=== PATIENT | female | born 2005 | race Two or more races ===

== ENCOUNTER 2025-07-22 14:54 | Emergency (ER) | payer SELFPAY ==
[~2025-07-22] VITALS: Ht 165.1 cm; Wt 64.5 kg
[2025-07-22 14:57] VITALS: BP 121/72; PULSE 105; RESP 16; TEMP 98; O2SAT 100
[2025-07-22] MEDS ORDERED: PRED20TA2 PO (16:10)
[2025-07-22] MEDS ORDERED: HYDRX10T PO (16:10)
[2025-07-22] MEDS ORDERED: FAMO20TA10 PO (16:10)
[2025-07-22] MEDS ORDERED: TRIO1TP EX (16:10)
--- NOTE | 2025-07-22 16:10 | ED.PDOC ---
History of Present Illness(SKN HPI Comments 19 year old female presents to the ER with a chief complaint of generalized rash and itchiness. Patient reports on initially having a rash appear behind her knees in his since spread to her elbows, back, chest, and hands. It is associated with a significant pruritus described as itchiness everywhere. The duration of the rash is unspecified in the patient is uncertain of its origin. The patient has not attempted any other treatments prior to the visit. There has been no recent changes in lotion or detergents, no recent travel and no exposure to others with similar symptoms recently. A portion of the rash on her hands has resolved but the itchiness persists. No fevers have been reported at this time. Denies any other symptoms at this moment. Chief Complaint: Rash Time Seen by MD: 16:15 History of Present Illness: Nurses Notes, Medications, Allergies Allergies: Coded Allergies: NO KNOWN ALLERGIES (Unverified , 07/22/25) Home Meds Active Scripts Prednisone (Prednisone) 20 Mg Tab, 40 MG PO DAILY for 5 Days, #10 TAB 0 Refills Prov:SONYA RIVERA NP 07/22/25 Famotidine (PEPCID TABLET) 20 Mg Tb, 1 TAB PO DAILY for 10 Days, #10 TAB 0 Refills Prov:SONYA RIVERA NP 07/22/25 Hydroxyzine Hcl (Hydroxyzine Hcl) 10 Mg Tab, 10 MG PO TIDPRN PRN for 10 Days, #30 TAB 0 Refills Prov:SONYA RIVERA NP 07/22/25 Triamcinolone Acetonide (Triamcinolone Acetonide) 0.1 % Cre, 1 APPLIC EX BID for 7 Days, #60 GRAMS 0 Refills Prov:SONYA RIVERA NP 07/22/25 Information Source: Patient Mode of Arrival: Ambulatory Severity: Moderate Timing: Minutes Duration: Since onset, Hours Prehospital treatment: None Location: Back, Chest, Hand Mechanism: Spontaneous Onset Developed: Rash Object: Unknown Condition of Object: None Retained Foreign Body: Unknown Wound Type: Unknown Immunization Status of Animal: NA Tetanus: Unknown History of: None Associated Signs and Symptoms: None Past Medical History PAST MEDICAL HISTORY: Denies Surgical History: Denies all surgeries PRINTING WORKER SUPERVISOR History: No Pertinent PRINTING WORKER SUPERVISOR History Family History Family History: Reviewed,noncontributory to illness, Unknown Social History Smoker: Non-Smoker Alcohol: Denies ETOH Use Drugs: Denies Drug Use Lives In: Home Constitutional: denies: chills, diaphoresis, fatigue, fever, malaise, sweats, weakness, others EENTM: denies: blurred vision, double vision, ear bleeding, ear discharge, ear drainage, ear pain, ear ringing, eye pain, eye redness, hearing loss, mouth pain, mouth swelling, nasal discharge, nose bleeding, nose congestion, nose pain, photophobia, tearing, throat pain, throat swelling, voice changes, others Respiratory: denies: cough, hemoptysis, orthopnea, SOB at rest, shortness of breath, SOB with excertion, stridor, wheezing, others Cardiovascular: denies: chest pain, dizzy spells, diaphoresis, Dyspnea on exertion, edema, irregular heart beat, left arm pain, lightheadedness, palpitations, PND, syncope, others Gastrointestinal: denies: abdomen distended, abdominal pain, blood streaked bowels, constipated, diarrhea, dysphagia, difficulty swallowing, hematemesis, melena, nausea, poor appetite, poor fluid intake, rectal bleeding, rectal pain, vomiting, others Genitourinary: denies: abnormal vagina bleeding, burning, dyspareunia, dysuria, flank pain, frequency, hematuria, incontinence, pain, , vagina discharge, urgency, others Neurological: denies: dizziness, fainting, headache, left sided numbness, left sided weakness, numbness, paresthesia, pre-existing deficit, right sided numbnes s, right sided weakness, seizure, speech problems, tingling, tremors, weakness, others Musculoskeletal: denies: back pain, gout, joint pain, joint swelling, muscle pain, muscle stiffness, neck pain, others Integumetry: reports: rash; denies: bruises, change in color, change in hair/nails, dryness, laceration, lesions, lumps, wounds, others Allergic/Immunocompromised: denies: Difficulty Healing, Frequent Infections, Hives, Itching, others Hematologic/Lymphatic: denies: anemia, blood clots, easy bleeding, easy bruising, swollen glands, others Endocrine: denies: excessive hunger, excessive sweating, excessive thirst, excessive urination, flushing, intolerance to cold, intolerance to heat, unexplained weight gain, unexplained weight loss, others Psychiatric: denies: anxiety, bipolar disorder, depression, hopeless, panic disorder, schizophrenia, sleepless, suicidal, others All Other Systems: Reviewed and Negative Physical Exam General Appearance: No Apparent Distress, Normal HEENT: Normal ENT Inspection, Pharynx Normal, TMs Normal Neck: Full Range of Motion, Non-Tender, Normal, Normal Inspection Respiratory: Chest Non-Tender, Lungs Clear, No Accessory Muscle Use, No Respiratory Distress, Normal Breath Sounds Cardiovascular: No Edema, No JVD, No Murmur, No Gallop, Normal Peripheral Pulses, Regular Rate/Rhythm Breast Exam: Deferred Gastrointestinal: No Organomegaly, Non Tender, No Pulsatile Mass, Normal Bowel Sounds, Soft Genitalia: Deferred Pelvic: Deferred Rectal: Deferred Extremities: No calf tenderness, Normal capillary refill, Normal inspection, Normal range of motion, Non-tender, No pedal edema Musculoskeletal : Apperance: Normal Neurologic: Alert, vision impaired teacher II-XII nml as Tested, No Motor Deficits, Normal Affect, Normal Mood, No Sensory Deficits Cerebellar Function: Normal Reflexes: Normal Skin: Dry, Normal Color, Warm Lymphatic: No Adenopathy Was a procedure done? Was a procedure done?: No Differential Diagnosis (INTG) Differential Diagnosis: Other Differential Diagnosis: Contact Dermatitis X-Ray, Labs, Meds, VS Vital Signs Date Time Temp Pulse Resp B/P (MAP) Pulse Ox O2 Delivery O2 Flow Rate FiO2 07/22/25 14:57 98.0 105 16 121/72 100 98.0 X-Ray, Labs, Meds, VS Comment 19 year old female presents to the ER with a chief complaint of generalized rash and itchiness. Patient arrives alert and oriented, ABC's intact, afebrile, vital signs stable, saturating well in room air Patient is stable for discharge at this time. External notes reviewed. Test results and diagnostic imaging interpreted. All diagnostic findings, discharge care, education and instructions provided Follow-up with PCP in 2 to 3 days Patient verbalized understanding and agreed to treatment plan Vital signs stable, afebrile, no acute distress noted Patient ambulatory with strong steady gait Advised to return precautions for any new or worsening symptoms, return to ER immediately for re-evaluation Patient is aware that the purpose of this visit was for an acute medical emergency requiring emergent stabilization. Chronic conditions, including malignancies have not been ruled out. Patient is instructed to follow up with PCP as directed and discharge instructions for continued care and workup. If unable to arrange follow-up, patient is to return to the emergency department for reassessment. Patient (parent or legal guardian if applicable) was given verbal and written discharge instructions and acknowledges understanding. Additional MDM Review of External, Non-ED records: External records reviewed. Discussion with independent historian (EMS, family) history obtained from the patient/parents (if applicable) at bedside Chronic conditions affecting care: None Social determinants of health affecting care: None Consideration of admission (observation or admission): I considered escalation of care to admission for this patient, however given the reassuring workup, the patient is safe for outpatient management. Discussion with the Radiology: No Tests considered but not performed: Prescription medication considered but not given: 12 lead EKG interpretation: Time of 1ST Reevaluation: 16:45 Reevaluation 1ST: Improved Patient Education/Counseling: Diagnosis, Treatment, Prognosis Family Education/Counseling: No Family Present SEPSIS Sepsis Screen Date sepsis recognized/suspect: Jul 22, 2025 Time Sepsis recognized/suspect: 1458 Recent Procedure: No On Antibiotic Therapy: No Respiratory Rate >20: No Heart Rate >90: Yes Temp<36 C (96.8 F) or >38.3 C: No SBP <90 or MAP <65 mmHG: No New Acute Mental Status Change: No Is the patient on CPAP, BIPAP,: No Vital Signs Date Time Temp Pulse Resp B/P (MAP) Pulse Ox O2 Delivery O2 Flow Rate FiO2 07/22/25 14:57 98.0 105 16 121/72 100 98.0 Departure 1 Departure Time of Disposition: 16:46 Impression: Primary Impression: Dermatitis Disposition: 01 HOME / SELF CARE / HOMELESS Condition: Stable e-Prescriptions Prednisone (Prednisone) 20 Mg Tab 40 MG PO DAILY for 5 Days, #10 TAB 0 Refills Prov: SONYA RIVERA TOPOLOGY PROFESSOR 07/22/25 Famotidine (PEPCID TABLET) 20 Mg Tb 1 TAB PO DAILY for 10 Days, #10 TAB 0 Refills Prov: SONYA RIVERA TOPOLOGY PROFESSOR 07/22/25 Hydroxyzine Hcl (Hydroxyzine Hcl) 10 Mg Tab 10 MG PO TIDPRN PRN for 10 Days, #30 TAB 0 Refills Prov: SONYA RIVERA TOPOLOGY PROFESSOR 07/22/25 Triamcinolone Acetonide (Triamcinolone Acetonide) 0.1 % Cre 1 APPLIC EX BID for 7 Days, #60 GRAMS 0 Refills Prov: SONYA RIVERA TOPOLOGY PROFESSOR 07/22/25 Discharged With: Self Critical Care Note Critical Care Time?: No Stability Stability form required: No Heart Score Heart Score: Heart Score Response (Comments) Value History N/A 0 EKG N/A 0 Age N/A 0 Risk Factors N/A 0 Troponin N/A 0 Total 0 I personally scribed for SONYA RIVERA NP ([email or web address]) on 07/22/25 at 16:20. Electronically submitted by Jeyson Dia ([email or web address]). SONYA RIVERA NP Jul 22, 2025 16:10
== END 2025-07-22 16:44 | disposition home or self-care (01) ==
LOC: ER 14:54
DX: L30.9 Dermatitis, unspecified (principal)